=== PATIENT | female | born 1975 | race Caucasian/White ===

== ENCOUNTER 2017-02-12 11:19 | Emergency (ER) | payer OTHER ==
[~2017-02-12] VITALS: Ht 157.5 cm; Wt 66.0 kg
[2017-02-12 11:52] VITALS: Ht 157.5 cm; Wt 66.0 kg
[2017-02-12] MEDS ORDERED: ASPIRIN 325 MG TAB PO STA (12:31)
--- NOTE | 2017-02-12 12:49 | ERD ---
ER Documentation Chief Complaint Date/Time DATE: 02/12/17 TIME: 12:45 Chief Complaint CP AND HEARTBURN PRESSURE ON CHEST HPI This is a very pleasant 41-year-old female with no past medical history that presents to the emergency department complaining of chest pain that began at 11 AM, 25 hours prior to arrival. The patient indicates she was sitting at work when she developed the sudden onset of chest pain which she described as a dull achy sensation. The pain did not radiate to her neck arm back or jaw. She did also experience some retrosternal burning pain that has been intermittent however the dull achy chest pain has been persistent since the onset 25 hours ago. She did not take any analgesic medication prior to arrival. She has never had any similar symptoms in the past. She also indicated she experienced shortness of breath at the onset of the chest pressure. She denies any swelling of her lower extremities. The patient had recent travel 2 weeks prior to arrival where she flew to [place]. She has had no fevers no shaking or chills. She denies any hemoptysis hematemesis or melanotic stools. She had no associated symptoms of nausea vomiting or diaphoresis. ROS All systems reviewed and are negative except as per history of present illness. Allergies Allergies: Coded Allergies: No Known Allergy (Unverified , 02/12/17) Physical Exam Vitals Vital Signs Date Time Temp Pulse Resp B/P Pulse Ox O2 Delivery O2 Flow Rate FiO2 02/12/17 11:52 99.9 81 18 141/65 97 Physical Exam Constitutional:Well-developed. Well-nourished. HEENT:Normocephalic. Atraumatic.Pupils were equal round reactive to light. Moist mucous membranes.No tonsillar exudates. Neck: No nuchal rigidity. No lymphadenopathy. No posterior cervical spine tenderness or step-offs. Respiratory: Not using accessory muscles of respiration.Lungs were clear to auscultation bilaterally. No rhonchi. No rales. No wheezing. Cardiovascular: Regular rate regular rhythm.No murmurs. No rubs were appreciated.S1, S2 normal. Distal pulses are palpable 2+ bilaterally. Reproducible bilateral chest wall tenderness with no crepitus no ecchymosis no flail chest peer GI: Abdomen was soft. Nontender. Non Distended. No pulsatile abdominal masses or bruits. No rebound. No guarding. Bowel sounds were present and normal. Muscle skeletal: Full range of motion of both the upper and lower extremities bilaterally.Normal muscle tone.No assymetrical calf tenderness or swelling. Skin: No petechia, no purpura. No lesions on the palms or the soles of the feet. No maculopapular rash. NEURO: Patient was alert, awake, orientated x3.No facial droop. Gait observed and normal with no ataxia.Speech had regular rate and rhythm. No focal neurological deficits. Results 24 hrs Current Medications Medications (Trade) Dose Ordered Sig/Jeanette Route PRN Reason Start Time Stop Time Status Last Admin Dose Admin Aspirin (Aspirin) 325 mg ONCE STAT PO 02/12/17 12:31 02/12/17 12:33 DC Procedures/MDM The patient presented to the emergency department complaining of chest pain. My clinical evaluation and workup was to distinguish minor causes of chest pain from acute life threatening cardiopulmonary causes such as myocardial infarction , pulmonary embolism, aortic dissection, esophageal rupture, cardiac tamponade, The patient was placed on a associate research scientist, continuous pulse oximetry and IV access established by nursing staff. 12 Lead EKG tracing ordered and reviewed by myself showed: Sinus bradycardia 42 bpm and no arrhythmia. NC interval normal. QRS duration normal. No ST segment elevation No ST segment depression. No changes consistent with acute ischemia. The patients chest pain was reproduced by palpation and horizontal flexion of the arms. It was my clinical impression that the pain was a result of inflammation of the skin and subcutaneous structures of the chest wall versus myocardial ischemia. I felt the patient had low-risk chest pain and could therefore be safely discharged with close follow-up. In addition the patient did also complain of shortness of breath. The patient is a low pretest probability according to the well's criteria for pulmonary embolism. Therefore I obtained a d-dimer Departure Diagnosis: Primary Impression: Costochondral chest pain Condition: ETHAN Sylvester Feb 12, 2017 12:49
[2017-02-12 12:58] LABS: ADD SCAN DIFF NO
[2017-02-12 13:01] LABS: BASOPHIL # 0.1 10^3/ul (0.0-0.1); BASOPHILS % 0.6 % (0.0-2.0); EOSINOPHILS # 0.1 10^3/ul (0.0-0.5); EOSINOPHILS % 1.2 % (0.0-7.0); HEMATOCRIT 38.4 % (37.0-47.0); HEMOGLOBIN 12.3 g/dl (12.0-16.0); LYMPHOCYTES # 1.1 10^3/ul (0.8-2.9); LYMPHOCYTES % 11.9 % (15.0-51.0); MEAN CORPUSCULAR HEMOGLOBIN 26.3 pg (29.0-33.0); MEAN CORPUSCULAR VOLUME 82.2 fl (82.0-101.0); MEAN PLATELET VOLUME 10.3 fl (7.4-10.4); MONOCYTE # 0.5 10^3/ul (0.3-0.9); MONOCYTES % 5.5 % (0.0-11.0); NEUTROPHIL # 7.2 10^3/ul (1.6-7.5); NEUTROPHILS % 80.6 % (39.0-77.0); PLATELET COUNT 369 10^3/UL (140-415); RED BLOOD COUNT 4.67 10^6/ul (4.20-5.40); RED CELL DISTRIBUTION WIDTH 15.5 % (11.5-14.5)
[2017-02-12 13:09] LABS: ADD UMIC NO; URINE BILIRUBIN (Dip) NEGATIVE (NEGATIVE); URINE BLOOD (Dip) NEGATIVE (NEGATIVE); URINE COLOR LT. YELLOW (YELLOW); URINE GLUCOSE (Dip) NEGATIVE (NEGATIVE); URINE KETONES (Dip) NEGATIVE (NEGATIVE); URINE LEUKOCYTE ESTERASE (Dip) NEGATIVE (NEGATIVE); URINE NITRITE (Dip) NEGATIVE (NEGATIVE); URINE TOTAL PROTEIN (Dip) NEGATIVE (NEGATIVE); URINE UROBILINOGEN (Dip) 0.2 E.U./dL (0.1-1.0)
[2017-02-12 13:11] LABS: INR 0.83; PARTIAL THROMBOPLASTIN TIME 27.7 Sec (25.0-35.0); PROTIME 11.4 Sec (12.2-14.2); PT RATIO 0.9
[2017-02-12 13:15] LABS: ALBUMIN 4.4 g/dl (3.3-4.9); CHLORIDE 104 mmol/L (97-110)
[2017-02-12 13:16] LABS: SODIUM 141 mmol/L (135-144)
[2017-02-12 13:18] LABS: ALANINE AMINOTRANSFERASE 25 IU/L (13-69); ALBUMIN/GLOBULIN RATIO 1.37; ALKALINE PHOSPHATASE 64 IU/L (42-121); ANION GAP 15 (8-16); ASPARTATE AMINO TRANSFERASE 18 IU/L (15-46); BILIRUBIN,INDIRECT 0.3 mg/dl (0-1.1); BILIRUBIN,TOTAL 0.3 mg/dl (0.2-1.3); BLOOD UREA NITROGEN 12 mg/dl (7-20); CARBON DIOXIDE 26 mmol/L (21-31); CREATININE 0.82 mg/dl (0.44-1.00); GLUCOSE 96 mg/dl (70-220); TOTAL PROTEIN 7.6 g/dl (6.1-8.1)
[2017-02-12 13:19] LABS: CALCIUM 9.3 mg/dl (8.4-10.2); CREATINE KINASE 45 IU/L (23-200)
[2017-02-12 13:27] LABS: B-TYPE NATRIURETIC PEPTIDE 25 PG/ML (0-125); CK-MB < 0.22 ng/ml (0.0-2.4)
[2017-02-12 13:28] LABS: D-DIMER 314.94 ng/ml (<460)
[2017-02-12 13:39] LABS: TROPONIN-I < 0.012 ng/ml (0.00-0.12)
--- NOTE | 2017-02-12 13:39 | RADRPT ---
PROCEDURE: XR Chest. CLINICAL INDICATION: chest pain TECHNIQUE: Single frontal view of the chest was obtained COMPARISON: None FINDINGS: The heart and mediastinum are within normal limits. The lungs are clear. There is no pleural effusion or pneumothorax. RPTAT: AA IMPRESSION: No acute disease. .Eleuterio Zabala MD, Date Time Electronically viewed and signed by .Eleuterio Zabala MD, on 02/12/2017 13:39 .S/
[2017-02-12] MEDS ORDERED: NAPR-260 PO (14:24)
[2017-02-12 14:35] VITALS: BP 107/58; PULSE 65; RESP 18
== END 2017-02-12 14:39 | disposition home or self-care (01) ==
LOC: E/R 11:19
DX: R07.1 Chest pain on breathing (principal)
CPT/HCPCS: 36415; 71010; 80053; 81003; 82550; 82553; 83880; 84484; 85025; 85378; 85610; 85730; 93005

== ENCOUNTER 2017-12-15 11:47 | Emergency (ER) | END 2017-12-15 20:38 | disposition home or self-care (01) ==